=== PATIENT | female | born 1985 | race Caucasian/White ===

== ENCOUNTER 2017-01-07 22:47 | Inpatient (IN) | payer OTHER ==
[~2017-01-07] VITALS: Ht 152.4 cm; Wt 90.1 kg
[2017-01-08] VITALS (11 sets, daily range): BP systolic 107–127; BP diastolic 62–73; PULSE 66–93; TEMP 98–99
[2017-01-08] MEDS ORDERED: RIBOFLAVIN100 MG PO (00:32)
[2017-01-08] MEDS ORDERED: ALLEGRA 180MG180 MG PO (00:33)
[2017-01-08] MEDS ORDERED: REGLAN 10MG10 MG/TAB PO (00:34)
[2017-01-08] MEDS ORDERED: VALTREX1 GM PO (00:34)
[2017-01-08] MEDS ORDERED: MAG-OX 400400 MG/TAB PO (00:35)
[2017-01-08] MEDS ORDERED: ULTRAM 50MG TAB50 MG PO (00:35)
[2017-01-08] MEDS ORDERED: NEXIUM 40MG40 MG PO (00:36)
[2017-01-08] MEDS ORDERED: DULCOLAX STOOL100 MG PO (00:37)
[2017-01-08] MEDS ORDERED: PRENATAL1 TA7 PO (00:38)
[2017-01-08] MEDS ORDERED: TYLENOL 325MG325 MG PO (00:38)
[2017-01-08 06:41] LABS: BASO % 0.6 % (0.0-2.0); EOS # 0.3 (0.0-0.7); EOS % 5.2 % (0-4.0); GRAN # 3.3 (1.4-6.5); GRAN % 65.5 % (42.2-75.2); HEMOGLOBIN 13.6 g/dl (12.5-16.0); LYMPH # 1.1 (1.2-3.4); LYMPH % 21.9 % (20.0-51.0); MEAN CELL VOLUME 93 fl (80.0-100.0); MEAN CORPUSCULAR HEMOGLOBIN 32 pg (27.0-31.0); MEAN CORPUSCULAR HGB CONC 34 g/dl (33.0-37.0); MEAN PLATELET VOLUME 11.1 fl (7.4-10.4); MONO # 0.3 (0.1-0.6); MONO % 6.6 % (1.7-9.3); PLATELET COUNT 218 K/mm3 (130-400); REDCELL DISTRIBUTION WIDTH-CV 12.4 % (11.5-14.5)
[2017-01-08 07:05] LABS: ADJUSTED CALCIUM 8.9 mg/dL (8.4-10.2); ALBUMIN 4.1 gm/dL (3.5-5.0); BILIRUBIN,TOTAL 4.3 mg/dL (0.0-1.0); CREATININE, serum 0.87 mg/dL (0.52-1.25); POTASSIUM 3.8 mmol/L (3.4-5.0); TOTAL PROTEIN 7.3 gm/dL (6.4-8.2)
[2017-01-09] VITALS (11 sets, daily range): BP systolic 113–143; BP diastolic 58–85; PULSE 70–97; TEMP 98–99.1
[2017-01-09] MEDS ORDERED: PERCOCET 325 MG1 TA2 PO (09:18)
[2017-01-09] MEDS ORDERED: MOTRIN 600600 MG/TAB PO (09:19)
[2017-01-09 10:47] LABS: PH 5 (5-8); URINE APPEARANCE Clear; URINE BILIRUBIN Negative (NEGATIVE); URINE BLOOD Negative (NEGATIVE); URINE COLOR Yellow; URINE GLUCOSE Negative (NEGATIVE); URINE KETONE Negative (NEGATIVE); URINE UROBILINOGEN Negative (NEGATIVE)
[2017-01-09 10:48] LABS: URINE RBC 0-2 /hpf
[2017-01-09 13:11] LABS: ADJUSTED CALCIUM 9.3 mg/dL (8.4-10.2); ALBUMIN 3.9 gm/dL (3.5-5.0); BILIRUBIN,TOTAL 1.2 mg/dL (0.0-1.0); CALCIUM 9.2 mg/dL (8.4-10.2); CREATININE, serum 0.75 mg/dL (0.52-1.25); POTASSIUM 4.3 mmol/L (3.4-5.0); TOTAL PROTEIN 6.8 gm/dL (6.4-8.2)
[2017-01-10 03:05] VITALS: BP 124/51; PULSE 74; TEMP 98.8
[2017-01-10] MEDS ORDERED: PERCOCET 325 MG1 TA3 PO (07:07)
[2017-01-10 07:08] LABS: BASO % 0.3 % (0.0-2.0); EOS # 0.1 (0.0-0.7); EOS % 0.6 % (0-4.0); GRAN # 9.9 (1.4-6.5); GRAN % 76.3 % (42.2-75.2); HEMATOCRIT 37.5 % (37.0-47.0); HEMOGLOBIN 12.9 g/dl (12.5-16.0); LYMPH % 15.4 % (20.0-51.0); MEAN CELL VOLUME 92 fl (80.0-100.0); MEAN CORPUSCULAR HEMOGLOBIN 32 pg (27.0-31.0); MEAN CORPUSCULAR HGB CONC 34 g/dl (33.0-37.0); MEAN PLATELET VOLUME 10.6 fl (7.4-10.4); MONO # 0.9 (0.1-0.6); MONO % 6.9 % (1.7-9.3); PLATELET COUNT 215 K/mm3 (130-400); RED BLOOD COUNT 4.07 M/mm3 (4.10-5.30); REDCELL DISTRIBUTION WIDTH-CV 12.3 % (11.5-14.5)
[2017-01-10 07:34] LABS: ADJUSTED CALCIUM 9.8 mg/dL (8.4-10.2); ALBUMIN 3.4 gm/dL (3.5-5.0); CALCIUM 9.3 mg/dL (8.4-10.2); CREATININE, serum 0.72 mg/dL (0.52-1.25); POTASSIUM 3.8 mmol/L (3.4-5.0); TOTAL PROTEIN 6.3 gm/dL (6.4-8.2)
== END 2017-01-10 09:10 | disposition home or self-care (01) | DRG 419 ==
LOC: MEDICAL 22:47
PROVIDERS: Family Medicine; Physician Assistant; Surgery
PROC: 0FC98ZZ Extirpation of Matter from Common Bile Duct, Via Natural or Artificial Opening Endoscopic (ICD-10-PCS; 2017-01-08)
PROC: 0FT44ZZ Resection of Gallbladder, Percutaneous Endoscopic Approach (ICD-10-PCS; principal; 2017-01-09 08:00)
DX: K80.42 Calculus of bile duct with acute cholecystitis without obstruction (principal)
CPT/HCPCS: 99222-AI; 99232-AI; 99239; C1769; C9113; J0330; J0694; J1100; J1170; J1885; J2250; J2405; J2550; J2704; J2710; J2765; J3010; J7030